=== PATIENT | female | born 1960 | race Two or more races ===

== ENCOUNTER → 2017-06-01 | Day surgery (SDC) | payer OTHER ==
--- NOTE | 2017-06-02 14:49 | PATH ---
Cytology Non-Gynecological Report Patient Name: ASHLEY DEL RIO [facility]. Rec. #: [id number] /Age/Gender: 1960 (Age: 56) / F Account: [id number] Location: RADIOLOGY Taken: 06/01/2017 Received: 06/01/2017 Reported: 06/02/2017 Physicians: Bryn Michaels M.D. Specimen(s) Received THYROID FNA Clinical History Right thyroid nodule, 1.75 x 0.97 x 0.80 cm Final Diagnosis THYROID, RIGHT, FINE NEEDLE ASPIRATION: SATISFACTORY FOR EVALUATION. BETHESDA CLASS II: BENIGN. CYTOLOGIC FINDINGS ARE SUGGESTIVE OF A BENIGN FOLLICULAR NODULE. FEW CLUSTERS OF SMALL FOLLICULAR CELLS AND SCANT COLLOID PRESENT. SEE COMMENT. Comment: Follicular component of the specimen is limited. Recommend correlation with nodule size and complexity on ultrasound to assist in further management of the lesion. If the nodule has worrisome ultrasound imaging properties, a repeat FNA, would be appropriate. Electronically Signed Abeba Davison M.D. Gross Description Received are eight direct smears, four of which are air-dried and Diff-Quik stained, and four of which are alcohol fixed and Pap stained. Also received is 20 ml of bloody formalin from which one cellblock is prepared.
== END | disposition home or self-care (01) ==
LOC: JRADIR 08:44
PROVIDERS: ATTEND Internal Medicine
PROC: 0G9H3ZX Drainage of Right Thyroid Gland Lobe, Percutaneous Approach, Diagnostic (ICD-10-PCS; principal; 2017-06-01)
DX: E04.1 Nontoxic single thyroid nodule (principal)
CPT/HCPCS: 76942; 88173; 88305-TC

== ENCOUNTER 2017-06-22 10:41 | Day surgery (SDC) | payer OTHER ==
[2017-06-17 10:29] VITALS: BMI 26.9
[2017-06-22] MEDS ORDERED: MIDAZOLAM HCL 2 MG/2 ML SINGLE DOSE VIAL ONE (11:50)
[2017-06-22] MEDS ORDERED: LIDOCAINE HCL 2% (20ML MULTI-DOSE VIAL) NR ONE (12:42)
[2017-06-22] MEDS ORDERED: ceFAZolin SODIUM 1 GM VIAL ONE (13:19)
[2017-06-22 14:05] VITALS: TEMP 98
[2017-06-22] MEDS ORDERED: oxyCODONE HCL 5 MG TABLET ONE (14:55)
[2017-06-22] MEDS ORDERED: oxyCODONE HCL 5 MG TABLET PO ONE (15:05)
[2017-06-22 15:29] VITALS: BP 118/70; PULSE 72
--- NOTE | 2017-06-23 10:40 | OP ---
DATE OF OPERATION: 06/22/2017 PREOPERATIVE DIAGNOSIS: Right carpal tunnel syndrome. POSTOPERATIVE DIAGNOSIS: Right carpal tunnel syndrome. OPERATIVE PROCEDURE: Right carpal tunnel release. ANESTHESIA: Local with sedation. COMPLICATIONS: None. ESTIMATED BLOOD LOSS: Minimal. INDICATIONS FOR PROCEDURE: The patient is a 56-year-old female with above findings indicated for operative treatment. Risks, benefits, and alternatives were discussed with the patient at length, and proper informed consent was obtained. DESCRIPTION OF PROCEDURE: After proper identification of patient and correct operative site, the patient was brought to the operating room and placed supine on the table, prominences well padded. Sedation was given by the anesthesiologist. Local anesthesia was given with 2% lidocaine. Right upper extremity was prepped and draped in a sterile fashion. A well-padded tourniquet was placed with a sterile prep. Esmarch bandage used to exsanguinate the right upper extremity. Tourniquet was inflated to 250 mmHg. A longitudinal incision was made at the proximal aspect of the palm. Incision was taken sharply through the skin with sharp and blunt dissection through the subcutaneous tissues. Palmar fascia was divided longitudinally. The transverse carpal ligament was divided laterally along with the distal 4 cm of the antebrachial fascia under direct visualization with loupe magnification. This provided complete release of the median nerve at the wrist. The wound was irrigated with saline and repaired with a 5-0 nylon suture. Sterile dressings were applied. The patient was brought to the recovery room in stable condition. She tolerated the procedure well. Bryn [id number]
== END 2017-06-22 15:50 | disposition home or self-care (01) ==
LOC: FASU 10:41
PROVIDERS: ATTEND Orthopaedic Surgery Hand Surgery
PROC: 01N50ZZ Release Median Nerve, Open Approach (ICD-10-PCS; principal; 2017-06-22 12:30)
DX: G56.01 Carpal tunnel syndrome, right upper limb (principal)